=== PATIENT | male | born 1990 | race Asian ===

== ENCOUNTER 2017-03-14 13:53 | Emergency (ER) | payer SELFPAY ==
[~2017-03-14] VITALS: Ht 160 cm; Wt 81.6 kg
[2017-03-14 14:20] VITALS: BP 149/71
[2017-03-14] MEDS ORDERED: KETOROLAC 60 MG/2 ML VIAL IM ONE (14:25)
--- NOTE | 2017-03-14 14:37 | NUR ---
pt to lobby awaiting room, er aware, pt is ao, vss, nad
--- NOTE | 2017-03-14 15:04 | NUR ---
PT TO BED 11
--- NOTE | 2017-03-14 15:10 | NUR ---
FIRST CONTACT: ASSUMED PATIENT CARE, CONCUR WITH TRIAGE. NURSING ASSESSMENT COMPLETED.
[2017-03-14 15:31] VITALS: BP 118/56
--- NOTE | 2017-03-14 15:33 | NUR ---
DISPO AND MEDICAL DECISION MAKING DC HOME WITH INSTRUCTIONS AND PRESCRIPTIONS, PATIENT UNDERSTANDS ALL INSTRUCTIONS. SYMPTOMS RELIEVED, VSWNL.
== END 2017-03-14 15:33 | disposition home or self-care (01) ==
LOC: MED 13:53
DX: R07.89 Other chest pain (principal)
CPT/HCPCS: 71045; 93005; 96372; 99284; J1885